=== PATIENT | male | born 1985 | race Two or more races ===

== ENCOUNTER 2017-04-26 20:15 | Emergency (ER) | payer SELFPAY ==
[~2017-04-26] VITALS: Ht 162.6 cm; Wt 70.0 kg
[2017-04-26 20:30] VITALS: BP 114/74
== END 2017-04-27 03:09 | disposition left against medical advice (07) ==
LOC: ER 20:15
DX: N48.89 Other specified disorders of penis (principal); Z53.21 Procedure and treatment not carried out due to patient leaving prior to being seen by health care provider

== ENCOUNTER 2017-04-29 13:23 | Emergency (ER) | payer SELFPAY ==
[~2017-04-29] VITALS: Ht 162.6 cm; Wt 69.0 kg
[2017-04-29 22:22] LABS: CLARITY URINE CLEAR (CLEAR); COLOR URINE YELLOW (YELLOW); KETONES URINE NEGATIVE (NEGATIVE); LEUKOCYTE ESTERASE URINE NEGATIVE (NEGATIVE); NITRITE URINE NEGATIVE (NEGATIVE); OCCULT BLOOD URINE NEGATIVE (NEGATIVE); PH URINE 5.5 (4.5-8.0); PROTEIN URINE NEGATIVE (NEGATIVE); SPECIFIC GRAVITY URINE 1.027 (1.005-1.030); UROBILINOGEN URINE 0.2 E.U./dL (0.2-1.0)
[2017-04-29] MEDS ORDERED: CEFTRIAXONE SODIUM 250 MG/VIAL IM ONE (22:30)
[2017-04-29] MEDS ORDERED: AZITHROMYCIN 500 MG TABLET PO ONE (22:30)
[2017-04-29 22:41] VITALS: BP 106/66
[2017-04-29] MEDS ORDERED: LIDOCAINE HCL 1% 20ML VIAL (Pyxis) INJ INFIL ONE (23:15)
[2017-04-29] MEDS ORDERED: LIDOCAINE HCL/EPINEPHRINE 0.5%-EPI 1:200,000 50 ML VIAL INFIL ONE (23:15)
== END 2017-04-30 00:32 | disposition home or self-care (01) ==
LOC: ER 14:49
DX: B36.0 Pityriasis versicolor (principal)
CPT/HCPCS: 81003; 96372; 99283; J0696; J3490; Z7610